=== PATIENT | female | born 1975 | race Caucasian/White ===

== ENCOUNTER 2019-09-16 17:16 | Inpatient (IN) ==
[2019-09-16] MEDS ORDERED: ZOSYN 4.5 GM in NS 100 ML IV ONE (17:50)
[2019-09-16] MEDS ORDERED: NS 1,000 ML IV ONE ×2 (17:51)
[2019-09-16] MEDS ORDERED: BENTYL IM ONE (17:52)
[2019-09-16] MEDS ORDERED: TORADOL IV ONE (17:52)
--- NOTE | 2019-09-16 18:06 | PROVIDER DOCUMENTATION ---
This chart was entered by Savannah Hernandez Scribe, acting as scribe for Finn Bustamante MD. HPI-Abdominal Pain/GI Problem - General Source: patient - History of Present Illness-ABD Nature of Presenting Problems: Patient is a 44 year old female who presents with generalized abdominal pain. States nausea and diarrhea with pain. Reports symptoms have been present for 2 weeks and worsened 4 days ago. Denies vomiting and fever. Abdominal Pain Onset Location: reports: generalized abdomen Pain Radiation: reports: no radiation Quality of Pain: reports: aching Severity in ED: reports: mild Onset/Duration: reports: other (2 weeks) Timing: reports: still present, getting worse (past 4 days) Activities at Onset: reports: light activity Associated Symptoms: reports: diarrhea, nausea. denies: vomiting Bruising or Bleeding Gums?: No Similar Symptoms Previously?: Yes Recently seen or treated by another doctor?: No <Finn Bustamante - Last Filed: 09/16/19 18:04> <Simone Reynolds - Last Filed: 09/16/19 21:41> - General Chief Complaint: SEPSIS ALERT - D Stated Complaint: ABD PAIN,DIARRHEA Time Seen by Provider: 09/16/19 17:41 Allergies/Adverse Reactions: Patient Allergies Allergy/AdvReac Type Severity Reaction Status Date / Time haloperidol [From Haldol] Allergy joint pain Verified 09/16/19 18:24 haloperidol lactate * Allergy joint pain Verified 09/16/19 18:24 [From Haldol] levofloxacin [From Levaquin] Allergy FATIGUE Verified 09/16/19 18:24 Home Medications: Home Medication List Medication Instructions Recorded Confirmed Last Taken Type Clonidine [Catapres] 0.1 mg PO DAILY #30 tab 07/17/19 09/16/19 Unknown Rx Review of Systems - Adult - REVIEW OF SYSTEMS - ADULT Constitutional: reports: no symptoms reported Eyes: reports: no symptoms reported Ears, Nose, Mouth & Throat: reports: no symptoms reported Cardiovascular: reports: no symptoms reported Respiratory: reports: no symptoms reported Gastrointestinal: reports: see HPI, abdominal pain (generalized), diarrhea, [place]. denies: vomiting Genitourinary: reports: no symptoms reported Musculoskeletal: reports: no symptoms reported Integumentary: reports: no symptoms reported Neurological: reports: no symptoms reported Psychiatric: reports: no symptoms reported Endocrine: reports: no symptoms reported Hematologic/Lymphatic: reports: no symptoms reported Allergic/Immunologic: reports: no symptoms reported All Other Systems: Reviewed and Negative <Finn Bustamante - Last Filed: 09/16/19 18:04> Past History - Adult - PAST MEDICAL HISTORY-ADULT Review of Records: reports: Old Records Reviewed, Nursing Assessment Review, Medications Reviewed, Social history reviewed & non-contributory. Major Childhood Illnesses: reports: denies history Cardiovascular: reports: HTN, hyperlipidemia Respiratory: reports: other (chronic sinus headaches/sinusitis) Gastrointestinal: reports: GERD Obstetrical/Gynecological: reports: denies history Genitourinary: reports: denies history Musculoskeletal: reports: chronic pain (Neck) Neurological: reports: denies history Psychiatric: reports: anxiety, depression, psychiatric problems, suicide attempt Endocrine/Immune: reports: denies history Other Conditions: reports: denies history - PRIOR SURGERIES/PROCEDURES Surgical/Procedure History: reports: , gastric bypass - PRIOR HOSPITALIZATIONS Prior Hospitalizations: reports: none - IMMUNIZATION STATUS Childhood Immunizations: See Nurse Assessment Flu Vaccine: See Nurse Assessment - FAMILY HISTORY Family History: reviewed, not pertinent - SOCIAL HISTORY Smoking: denies Substance Use: none presently/history of abuse (history), other (meth) Alcohol Use Frequency: sober (former use) <Finn Bustamante - Last Filed: 09/16/19 18:04> Physical Exam-General - PHYSICAL EXAM-ADULT Initial Vital Signs Reviewed: Yes - CONSTITUTIONAL General Appearance: alert, no apparent distress. negative: lethargic - HEAD, EARS, NOSE, MOUTH & THROAT HENMT: normocephalic/atraumatic, moist mucous membranes. negative: angioedema - RESPIRATORY Respiratory: chest non-tender, lungs clear, normal breath sounds. negative: respiratory distress, wheezing, increased rate - CARDIOVASCULAR Cardiovascular: no edema, tachycardia. negative: systolic murmur - GASTROINTESTINAL (ABDOMEN) Abdominal Exam: normal bowel sounds, soft, tenderness (epigastric and RUQ). negative: rigid - MUSCULOSKELETAL Extremity: non-tender, other (well healed scars to left forearm.). negative: pedal edema - SKIN Integumentary: normal color, normal turgor, warm/dry. negative: diaphoresis, rash - NEUROLOGIC Neurologic: grossly normal. negative: aphasia, facial droop - PSYCHIATRIC Psych/Mental Status: normal mood/affect, oriented x 3. negative: anxious <Finn Bustamante - Last Filed: 09/16/19 18:04> Progress - PLAN OF CARE/RESULTS Progress/Plan/Lab Results: Vital Signs - 8 hr 09/16/19 17:18 Temperature 98.2 F Pulse Rate 164 H Respiratory Rate 20 Blood Pressure 124/81 O2 Sat by Pulse Oximetry 99 Orders Category Date Time Status Cardiac Monitoring DIRECTED Care 09/16/19 17:34 Active IV Insertion ORDERED Care 09/16/19 17:34 Active Notify MD of + Sepsis Screen NOW Care 09/16/19 17:34 Active Notify Physician As Ordered Care 09/16/19 17:34 Active CHEST-1 VIEW [RAD] Stat Exams 09/16/19 17:34 Ordered BLOOD CULTURE [BLDCUL] Stat Lab 09/16/19 17:34 Uncollected CBC WITH DIFF [HEME] Stat Lab 09/16/19 17:34 Uncollected CK PROFILE [SP CHEM] Stat Lab 09/16/19 17:34 Uncollected COMPREHENSIVE METABOLIC PANEL [CHEM] Stat Lab 09/16/19 17:34 Uncollected LACTATE, PLASMA [CHEM] Q3H Lab 09/16/19 17:45 Uncollected LACTATE, PLASMA [CHEM] Q3H Lab 09/16/19 20:45 Uncollected LACTATE, PLASMA [CHEM] Q3H Lab 09/16/19 23:45 Uncollected PROTIME WITH INR [COAG] Stat Lab 09/16/19 17:34 Uncollected PTT [COAG] Stat Lab 09/16/19 17:34 Uncollected TROPONIN T Stat Lab 09/16/19 17:34 Uncollected URINALYSIS W/POSS RFLX CULT [URINALYSIS] Stat Lab 09/16/19 17:34 Uncollected Oxygen Device Stat Oth 09/16/19 17:34 Active EKG [EKG] Stat Ther 09/16/19 17:35 Ordered - REASSESSMENT Reassessment #1 Time Reassessed: 18:04 Status: improving (Patient very tachycardic, either d/t dehydration, sepsis, acute meth intoxication or w/d. WIll give IVF bolus, toradol and bentyl and IV zosyn.) - EKG 1 Time of EKG reading by physician:: 17:43 EKG Read and Signed by:: Finn Bustamante EKG Interpretation (*Must complete 3 of following elements*): Abnormal Rate: 138 Rhythm: sinus tach [place]: left QRS: LVH [place] Interval: normal Comments: questionable OAWMI; NSSTTWC - CHANGE OF SHIFT REPORT (ED Provider) 1 Report Given and Care Transferred to:: [facility] Time of Transfer: 19:00 Items Pending: Labs, CT/MRI Results, Pain Control <Finn Bustamante - Last Filed: 09/16/19 18:04> - PLAN OF CARE/RESULTS Progress/Plan/Lab Results: Vital Signs - 8 hr 09/16/19 17:18 09/16/19 18:11 Temperature 98.2 F Pulse Rate 164 H 117 H Respiratory Rate 20 17 Blood Pressure 124/81 O2 Sat by Pulse Oximetry 99 Laboratory Results - last 24 hr 09/16/19 09/16/19 09/16/19 18:13 18:13 18:20 WBC RBC Hgb Hct MCV MCH MCHC RDW Std Deviation Plt Count MPV Immature Gran % (Auto) Neut % (Auto) Lymph % (Auto) [place] % (Auto) Eos % (Auto) Baso % (Auto) Immature Gran # (Auto) Neut # (Auto) Lymph # (Auto) [place] # (Auto) Eos # (Auto) Baso # (Auto) PT INR PTT ([place] FS) Sodium Potassium Chloride Carbon Dioxide Anion Gap BUN Creatinine Estimated GFR/1.73 m2 BUN/Creatinine Ratio Glucose Calculated Osmolality Calcium Total Bilirubin AST ALT Alkaline Phosphatase Creatine Kinase Troponin T Total Protein Albumin Globulin Albumin/Globulin Ratio Lipase Plasma Lactate 0.6 Urine Source CLEAN CATCH Urine Color YELLOW Urine Turbidity CLEAR Urine pH 5.5 Ur Specific [place] 1.026 Urine Protein TRACE A Ur Glucose (Stick) NEGATIVE Ur Ketones (Stick) NEGATIVE Urine Blood NEGATIVE Urine Nitrite NEGATIVE Urine Bilirubin NEGATIVE Urobilinogen Dipstick NORMAL Urine Leukocytes TRACE A Urine WBC (Auto) <10 Urine RBC (Auto) <10 U Epithel Cells (Auto) <10 Urine Bacteria (Auto) NEGATIVE Urine Opiates Screen NONE DETECTED Ur Oxycodone Screen NONE DETECTED Ur Methadone, Qual NONE DETECTED Ur Barbiturates Screen NONE DETECTED Ur Phencyclidine Scrn NONE DETECTED Ur Amphetamines Screen NONE DETECTED U Benzodiazepines Scrn NONE DETECTED Urine Cocaine Screen NONE DETECTED U Cannabinoids Screen NONE DETECTED Plasma/Serum Ethyl Alc 09/16/19 09/16/19 09/16/19 18:20 18:20 18:20 WBC 6.01 RBC 4.60 Hgb 13.1 Hct 39.6 MCV 86.1 MCH 28.5 MCHC 33.1 RDW Std Deviation 13.6 Plt Count 260 MPV 9.7 Immature Gran % (Auto) 0.0 Neut % (Auto) 59.8 Lymph % (Auto) 32.6 [place] % (Auto) 5.3 Eos % (Auto) 2.0 Baso % (Auto) 0.3 Immature Gran # (Auto) 0.00 Neut # (Auto) 3.59 Lymph # (Auto) 1.96 [place] # (Auto) 0.32 Eos # (Auto) 0.12 Baso # (Auto) 0.02 PT 13.0 INR 0.97 PTT (Actin FS) 27.9 Sodium 143 Potassium 3.5 Chloride 102 Carbon Dioxide 29 Anion Gap 12 BUN 18 Creatinine 0.9 Estimated GFR/1.73 m2 > 60 BUN/Creatinine Ratio 20 Glucose 103 Calculated Osmolality 287 Calcium 9.0 Total Bilirubin 0.25 AST 78 H ALT 98 H Alkaline Phosphatase 269 H Creatine Kinase 69 Troponin T Total Protein 6.7 Albumin 4.0 Globulin 2.7 Albumin/Globulin Ratio 1.5 Lipase 6 L Plasma Lactate Urine Source Urine Color Urine Turbidity Urine pH Ur Specific [place] Urine Protein Ur Glucose (Stick) Ur Ketones (Stick) Urine Blood Urine Nitrite Urine Bilirubin Urobilinogen Dipstick Urine Leukocytes Urine WBC (Auto) Urine RBC (Auto) U Epithel Cells (Auto) Urine Bacteria (Auto) Urine Opiates Screen Ur Oxycodone Screen Ur Methadone, Qual Ur Barbiturates Screen Ur Phencyclidine Scrn Ur Amphetamines Screen U Benzodiazepines Scrn Urine Cocaine Screen U Cannabinoids Screen Plasma/Serum Ethyl Alc 09/16/19 09/16/19 18:20 18:20 WBC RBC Hgb Hct MCV MCH MCHC RDW Std Deviation Plt Count MPV Immature Gran % (Auto) Neut % (Auto) Lymph % (Auto) [place] % (Auto) Eos % (Auto) Baso % (Auto) Immature Gran # (Auto) Neut # (Auto) Lymph # (Auto) [place] # (Auto) Eos # (Auto) Baso # (Auto) PT INR PTT (Actin FS) Sodium Potassium Chloride Carbon Dioxide Anion Gap BUN Creatinine Estimated GFR/1.73 m2 BUN/Creatinine Ratio Glucose Calculated Osmolality Calcium Total Bilirubin AST ALT Alkaline Phosphatase Creatine Kinase Troponin T < 0.010 Total Protein Albumin Globulin Albumin/Globulin Ratio Lipase Plasma Lactate Urine Source Urine Color Urine Turbidity Urine pH Ur Specific [place] Urine Protein Ur Glucose (Stick) Ur Ketones (Stick) Urine Blood Urine Nitrite Urine Bilirubin Urobilinogen Dipstick Urine Leukocytes Urine WBC (Auto) Urine RBC (Auto) U Epithel Cells (Auto) Urine Bacteria (Auto) Urine Opiates Screen Ur Oxycodone Screen Ur Methadone, Qual Ur Barbiturates Screen Ur Phencyclidine Scrn Ur Amphetamines Screen U Benzodiazepines Scrn Urine Cocaine Screen U Cannabinoids Screen Plasma/Serum Ethyl Alc Orders Category Date Time Status Cardiac Monitoring DIRECTED Care 09/16/19 17:34 Active IV Insertion ORDERED Care 09/16/19 17:34 Completed Notify MD of + Sepsis Screen NOW Care 09/16/19 17:34 Active Notify Physician As Ordered Care 09/16/19 17:34 Active CHEST-1 VIEW [RAD] Stat Exams 09/16/19 17:[address] ABD/PELVIS W/IV CONT ONLY [CT] Stat Exams 09/16/19 17:50 Taken ALCOHOL BLOOD Stat Lab 09/16/19 18:20 Completed BLOOD CULTURE [BLDCUL] Stat Lab 09/16/19 17:42 Results C DIFF TOXIN [STOOL] Stat Lab 09/16/19 18:22 Ordered CBC WITH DIFF [HEME] Stat Lab 09/16/19 18:20 Completed CK PROFILE [SP CHEM] Stat Lab 09/16/19 18:20 Completed COMPREHENSIVE METABOLIC PANEL [CHEM] Stat Lab 09/16/19 18:20 Completed LACTATE, PLASMA [CHEM] Lab 09/16/19 18:20 Completed LACTATE, PLASMA [CHEM] Lab 09/16/19 20:45 Uncollected LACTATE, PLASMA [CHEM] Lab 09/16/19 23:45 Uncollected LIPASE [CHEM] Stat Lab 09/16/19 18:20 Completed PROTIME WITH INR [COAG] Stat Lab 09/16/19 18:20 Completed PTT [COAG] Stat Lab 09/16/19 18:20 Completed STOOL CULTURE [RM] Stat Lab 09/16/19 17:50 Uncollected TROPONIN T Stat Lab 09/16/19 18:20 Completed URINALYSIS W/POSS RFLX CULT [URINALYSIS] Stat Lab 09/16/19 18:13 Completed URINE CULTURE [RM] Routine Lab 09/16/19 18:13 Received URINE DRUG SCREEN Stat Lab 09/16/19 18:13 Completed 0.9% Sodium Chloride Inj [Ns] 1,000 ml Med 09/16/19 17:51 Discontinued IV 999 mls/hr 0.9% Sodium Chloride Inj [Ns] 1,000 ml Med 09/16/19 17:51 Discontinued IV 999 mls/hr Dicyclomine [Bentyl] Med 09/16/19 17:52 Discontinued 20 mg IM NOW ONE Ketorolac [Toradol] Med 09/16/19 17:52 Discontinued 30 mg IV NOW ONE Piperacillin/Tazobactam [Zosyn] 4.5 gm Med 09/16/19 17:50 Discontinued 0.9% Sodium Chloride Inj [Ns] 100 ml IV NOW Oxygen Device Stat Oth 09/16/19 17:34 Active EKG [EKG] Stat Ther 09/16/19 17:35 Draft Result Diagrams: 09/16/19 18:20 09/16/19 18:20 - REASSESSMENT Reassessment #2 Time Reassessed: 19:45 Status: improving Reassessment Comment: heart rate has improved Reassessment #3 Time Reassessed: 20:15 Status: improving Reassessment Comment: awaiting CT report, labs are unremarkable - CT/MRI 1 CT Study: Abdomen, Pelvis CT Results: cholelithiasis with cholecystitis - CONSULTS/PCP/HOSPITALIST Notification #1 *Consult/PCP/Hospitalist*: Dr. Roberts, surgeon jewelry salesperson Time Discussed: 21:35 Consult Disposition: Admit #2 Consult: Dr. Brian, hospitalist Time Discussed: 21:40 Consult Disposition: Admit <Simone Reynolds - Last Filed: 09/16/19 21:41> Departure <Finn Bustamante - Last Filed: 09/16/19 18:04> - Departure Date of Disposition Decision: 09/16/19 Time of Disposition Decision: 21:41 Certified Medical Emergency: Emergent - Critical Care Note This patient required my direct & personal management of CC.: No <Simone Reynolds - Last Filed: 09/16/19 21:41> - Departure DIAGNOSIS: Acute cholecystitis Cholelithiasis Qualifiers: Cholelithiasis location: gallbladder Cholecystitis presence: with cholecystitis Cholecystitis acuity: acute Biliary obstruction: without biliary obstruction Q ualified Code(s): K80.00 - Calculus of gallbladder with acute cholecystitis without obstruction Disposition: ADMITTED INPATIENT 09 Condition: Stable Referrals and Follow-Ups: Livan Godoy MD [Primary Care Provider] - Attestation - Physician/ POLI Attestation The physician spent face to face time with patient:: Yes Advanced Practice Provider documentation review:: Supervising physician onsite and consulted in the evaluation and care of this patient. The physician did have a face to face encounter with the patient. <Finn Bustamante - Last Filed: 09/16/19 18:04> This chart was documented by the indicated scribe, (Savannah Hernandez Scribe) and accurately reflects the services I performed and decisions made by Dianna harvey Kent A., MD, as attested by the provider's signature.
--- NOTE | 2019-09-16 18:11 | Diag Imaging Result Doc PS360 ---
EXAM: CHEST-1 VIEW HISTORY: POSSIBLE SEPSIS TECHNIQUE: Single view COMPARISON: 07/17/2019 FINDINGS: The lungs are well expanded. The heart is not enlarged. The vessels are not distended. There are no infiltrates. No effusion identified. IMPRESSION: No pneumonia Electronically signed by Judah Jackson 09/16/2019 6:08 PM
[2019-09-16 18:36] LABS: BASO# 0.02 X1000 (0.0-0.2); BASO% 0.3 % (0.0-0.8); EOS# 0.12 X1000 (0.0-0.7); HEMATOCRIT 39.6 % (37.0-47.0); HEMOGLOBIN 13.1 g/dL (12.0-16.0); LYMPH# 1.96 X1000 (1.2-3.4); LYMPH% 32.6 % (20.5-51.1); MCH 28.5 PG (27-31); MCHC 33.1 g/dL (33-37); MCV 86.1 FL (81-99); MONO# 0.32 X1000 (0.11-0.59); MONO% 5.3 % (1.7-9.3); MPV 9.7 FL (7.4-10.4); NEUT# 3.59 X1000 (1.4-6.5); NEUT% 59.8 % (42.2-75.2); PLT 260 X1000 (130-400); RDW 13.6 % (11.5-14.5); WBC 6.01 X1000 (4.8-10.8)
--- NOTE | 2019-09-16 18:40 | EKG Report ---
Test Performed on : 09/16/2019 5:29:12 PM Test Reason : TACHYCARDIA Blood Pressure : / mmHG Vent. Rate : 138 BPM Atrial Rate : 138 BPM P-R Int : 140 ms QRS Dur : 086 ms QT Int : 280 ms P-R-T Axes : 060 -40 078 degrees QTc Int : 424 ms Sinus tachycardia. Left axis deviation Anterolateral infarct (cited on or before 24-APR-2011) Abnormal ECG When compared with ECG of 17-JUL-2019 14:02, (Unconfirmed) No significant change was found Unconfirmed Result
[2019-09-16 19:02] LABS: INR 0.97; PTT 27.9 Seconds (22.3-41.8)
[2019-09-16 19:07] LABS: ESTIMATED GFR > 60
[2019-09-16 19:08] LABS: AGAP 12; ALB/GLOB RATIO 1.5; ALKALINE PHOSPHATASE 269 U/L (32-104); BUN 18 mg/dL (8-22); CHLORIDE 102 mmol/L (98-107); CK PROFILE 69 U/L (24-173); COSMO 287; CREATININE 0.9 mg/dL (0.5-0.9); GLUCOSE 103 mg/dL (70-104); GOT 78 U/L (10-30); GPT 98 U/L (10-36); LIPASE 6 U/L (13-60); POTASSIUM 3.5 mmol/L (3.5-5.1); SODIUM 143 mmol/L (136-145); TCO2 29 mmol/L (25-35); TOTAL BILIRUBIN 0.25 mg/dL (0.20-1.00); TOTAL PROTEIN 6.7 g/dL (6.3-8.3)
[2019-09-16 19:08] LABS: URINE SOURCE CLEAN CATCH
[2019-09-16 19:11] LABS: BILIRUBIN URINE NEGATIVE (NEGATIVE); BLOOD URINE NEGATIVE (NEGATIVE); COLOR YELLOW; GLUCOSE URINE NEGATIVE (NEGATIVE); KETONE URINE NEGATIVE (NEGATIVE); LEUKOCYTES URINE TRACE (NEGATIVE); NITRITE URINE NEGATIVE (NEGATIVE); PH URINE 5.5; PROTEIN URINE TRACE mg/dL (NEGATIVE); SP GRAVITY URINE 1.026; TURBIDITY URINE CLEAR (CLEAR); UROBILINOGEN URINE NORMAL (NORMAL)
[2019-09-16 19:12] LABS: UR EPITHELIAL CELLS <10 /HPF (<10); URINE BACTERIA NEGATIVE /HPF; URINE RBC <10 /HPF (<10); URINE WBC <10 /HPF (<10)
[2019-09-16 19:28] LABS: UR AMPHETAMINES QUAL NONE DETECTED (NONE DETECT); UR BARBITUATES QUAL NONE DETECTED (NONE DETECT); UR BENZODIAZEPIN QUAL NONE DETECTED (NONE DETECT); UR CANNABINOIDS QUAL NONE DETECTED (NONE DETECT); UR COCAINE QUAL NONE DETECTED (NONE DETECT); UR METHADONE QUAL NONE DETECTED (NONE DETECT); UR OPIATES QUAL NONE DETECTED (NONE DETECT); UR OXYCODONE QUAL NONE DETECTED (NONE DETECT); UR PCP QUAL NONE DETECTED (NONE DETECT)
--- NOTE | 2019-09-16 20:37 | Diag Imaging Result Doc PS360 ---
EXAM: CT ABD/PELVIS W/IV CONT ONLY HISTORY: colitis TECHNIQUE: CT abdomen and pelvis with intravenous contrast COMPARISON: None. FINDINGS: There are multiple stones filling the gallbladder. The common bile duct is dilated to 11 mm and there is intrahepatic biliary dilatation. Mild pericholecystic fluid. Normal spleen, pancreas, adrenal glands, and kidneys. No hydronephrosis. Normal aorta. There are multiple small mesenteric nodes. Normal appendix. No abscess. There is stool throughout the colon. Prominent stool in the rectum. No bowel obstruction. Urinary bladder is moderately distended and normal. No focal uterine abnormality. Neither ovary is enlarged. IMPRESSION: 1.Cholelithiasis with cholecystitis 2.Constipation and possible fecal impaction This exam was performed using automated exposure control, adjustment of mA or kV according to patient size, and/or use of iterative reconstruction technique. Electronically signed by Judah Jackson 09/16/2019 8:34 PM
[2019-09-17] MEDS: SODIUM CHLORIDE 0.9% INJ PRN ×2 (01:44→10:36)
[2019-09-17] MEDS: PHENERGAN IV PRN ×2 (01:44→10:36)
[2019-09-17] MEDS ORDERED: ASPIRIN ONE ×2 (03:05→03:06)
[2019-09-17] MEDS ORDERED: MORPHINE IV ONE (03:38)
[2019-09-17] MEDS ORDERED: CARDENE 20 MG/NS 20 MG/200 ML PIGGYBACK IV SCH (04:00)
[2019-09-17] MEDS ORDERED: TYLENOL PR PRN (05:07)
[2019-09-17] MEDS ORDERED: TYLENOL PO PRN (05:12)
[2019-09-17] MEDS: NS 1,000 ML IV SCH ×2 (06:58→17:02)
[2019-09-17] MEDS: PROTONIX IV SCH (06:58)
[2019-09-17] MEDS: ZOSYN 3.375 GM in NS 50 ML IV SCH ×3 (06:59→17:02)
--- NOTE | 2019-09-17 07:07 | HISTORY AND PHYSICAL ---
PRIMARY CARE PROVIDER: Previously Dr. Livan Godoy though due to insurance reasons the patient has not seen him recently, though she does report that in September of 2019 she will have medical insurance coverage again. She has already confirmed with Dr. Godoy that he will take her back on as a patient at that time. DATE AND TIME: 09/17/2019 at 0145. CHIEF COMPLAINT: Abdominal pain with nausea, vomiting, and diarrhea. HISTORY OF PRESENT ILLNESS: Ms. Ferraro is a 44-year-old female who came to the ER for further evaluation of epigastric and right upper quadrant abdominal pain that she has been having for reported 2 weeks now. The patient states that the pain is intermittent, and usually comes on after she eats. She reports that if she does not eat or drink anything then the pain tends to stay at bay. She says she has had a few episodes like this in the past though brushed it off as she might have gastric ulcers given that it always seemed to bother her after she eats. She denies any previous history of being diagnosed with any type of gastric ulcer disease. She has been reporting constant nausea. She only reports 2 episodes of vomiting in the 2 weeks since her pain started. She denies any hematemesis or coffee-ground appearing emesis. She has reported that she has been having diarrhea that has been watery to slimy in consistency. She denies any hematochezia or melena. She reports that her abdominal pain is a burning and achy type of pain that becomes sharp at times. She reports that pain medicine does help improve it. She denies any body aches, though states that she felt like she may have had a fever. She has been having some chills. She denies any headache, dizziness, chest pain, shortness of breath or cough. She denies any dysuria or urinary frequency. She denies any pain, numbness, tingling or swelling in extremities. The patient has had previous abdominal surgeries of a lap band surgery, and lap band removal due to she did have an obstruction secondary to this. She has also had 2 C-sections in the past. Upon evaluation in the ER, the patient has been afebrile. She has no leukocytosis noted though did have elevation of AST, ALT, and alkaline phosphatase. Given her reported symptoms as well as her elevated liver function tests, I did perform a CT abdomen and pelvis with IV contrast only which did show cholelithiasis with cholecystitis, constipation, and possible fecal impaction. The ER physician did notify the surgeon Dr. Roberts of the patient as well. It was also noted in the ER physician's note that the patient did arrive with a heart rate that was documented to be initially 164. Subsequent heart rates were in the 120s. Though they have since improved with the heart rate now in the 80s to 90s. EKG did show sinus tachycardia. Though after being given medications of Bentyl and Toradol for pain in the ER as well as 2 L of normal saline bolus, the patient's heart rate has since improved. She has not had any further elevations in her heart rate since that time. The patient will be admitted inpatient for further evaluation. REVIEW OF SYSTEMS: 14-point review of systems was conducted with the patient. All were negative except for pertinent positives mentioned above in HPI. PAST MEDICAL HISTORY: 1. Chronic low back pain. 2. Depression. 3. History of opioid dependency. 4. History of methamphetamine abuse. 5. Hypertension. PAST SURGICAL HISTORY: 1. x2. 2. Lap band surgery and lap band removal secondary to complications of obstruction. 3. Cervical fusion reportedly at C3, 4 and 5. SOCIAL HISTORY: The patient denies any tobacco or alcohol use. She did report a previous history of opioid abuse and methamphetamine abuse. She did report that she did use to inject IV methamphetamines as well in the past. She denies any current use at this time. She is disabled. She does have 2 children. She currently does have a boyfriend. She lives in [place]. She also does report that her boyfriend also has a history of hepatitis C. Though the patient reports that she was tested for hepatitis in the past, she has not had any recent testing performed. FAMILY HISTORY: Positive for her mother having a history of heart disease and diabetes. Her father also had a history of heart disease and diabetes. ALLERGIES: Patient has allergies to Levaquin, Haldol and Bactrim. HOME MEDICATIONS: Clonidine 0.1 mg p.o. daily. DIAGNOSTIC DATA/LABORATORY RESULTS: White blood cell count is 6010, hemoglobin 13.1, hematocrit 39.6, and platelet count is 260,000. PT 13, INR 0.97, and PTT is 27.9. Sodium 143, potassium 3.5, chloride 102, serum bicarb of 29, BUN 18, and creatinine 0.9 with a GFR greater than 60, glucose 103, calcium 9, total bilirubin 0.25, AST 78, ALT 98, and alkaline phosphatase 269. CK 69, troponin less than 0.01. Lipase is 6. Plasma lactate is 0.6. Serum alcohol is 0. Urine drug screen was negative. Urinalysis was positive for protein and trace leukocytes. It was negative for glucose, ketones, blood, nitrites, bilirubin, white blood cells, or bacteria. Chest x-ray showed no acute abnormalities per Radiology. CT abdomen and pelvis showed cholelithiasis with cholecystitis, constipation and a possible fecal impaction. Please see full CT report for all details findings. EKG performed in the ER did show sinus tachycardia with a left axis deviation at a rate of 138 with a QTc of 424. PHYSICAL EXAMINATION: VITAL SIGNS: Temperature 98.2 degrees, heart rate 96, respirations 19, blood pressure 136/65, and oxygen saturation is 100% on room air. GENERAL: Ms. Ferraro is a very pleasant 44-year-old female. She was resting in the inpatient bed. She was in no acute distress. She was awake, alert, and able to answer questions appropriately. HEENT: Head is atraumatic, normocephalic. Pupils are equal, round, reactive to light, were 3 mm bilaterally and brisk. Oral mucosa was moist. Oropharynx is clear. NECK: Supple. Trachea midline. CARDIOVASCULAR: Patient has S1-S2 present. No murmurs, gallops, rubs appreciated with a regular rate and rhythm. PULMONARY: Patient has symmetrical chest expansion bilaterally. Lung sounds are clear to auscultation in bilateral full saucedo. ABDOMEN: Soft. Nondistended. The patient reported tenderness upon palpation in the epigastric and right upper quadrant area. She did have a positive Morse sign. Bowel sounds were present in all 4 quadrants, and were normoactive. EXTREMITIES: No cyanosis or edema noted. Pulse, motor, and sensory were intact in all extremities. Radial and pedal pulses were 2+ bilaterally. INTEGUMENTARY: The patient's skin is pink, warm, and dry. NEUROLOGICAL: Patient is alert and oriented to person, place, time, and situation. EXTREMITIES: No cyanosis or edema noted. Pulse, motor, and sensory is intact in all extremities. Radial and pedal pulses are 2+ bilaterally. INTEGUMENTARY: The patient's skin is pink, warm, and dry. NEUROLOGICAL: The patient is alert and oriented to person, place, time, and situation. She is able move all extremities. There were no focal neurological deficits noted. ASSESSMENT AND PLAN: 1. Cholelithiasis with acute cholecystitis. The patient has been placed NPO. Though she has been afebrile and does not have any leukocytosis at this time, blood cultures were previously drawn in the ER. She has been placed with antibiotic coverage of Zosyn 3.375 g q.6 hours IV. We have placed orders for p.r.n. pain medicine and antiemetics if needed. We will provide some gentle intravenous fluid hydration as well with normal saline at 100 mL/h. She has previously received 2 L normal saline bolus in the ER. We have placed a consult with Dr. Roberts with Surgery. We will await their evaluation and further recommendations for management. 2. Transaminitis. This could be related to the patient's cholelithiasis, though she does have history of IV drug abuse in the past, and does have a reported boyfriend who does have hepatitis C. We have placed orders for hepatitis profile as well. We will repeat a CMP in the morning. 3. Hypertension. We have continued the patient's rarely prescribed clonidine 0.1 mg p.o. The patient's blood pressure at this time is within normal limits. The patient's heart rate and blood pressure were elevated in the ER though since being given pain medicine and fluids, these have all returned within normal limits. 4. Deep vein thrombosis prophylaxis. We provided her with sequential compression devices. 5. Constipation. The patient's CT did show constipation with possible fecal impaction. The patient has been reporting that she has been having diarrhea as well. For treatment of this, we will likely go ahead and try to give the patient a mineral oil enema to soften up the stool, and possible fecal impaction, and see if she can have a bowel movement. If not, she may have to be disimpacted. We will go ahead and place her with Colace twice daily though until she is evaluated by Surgery, we will hold off on any other oral medications for bowel regimen in case she is a surgical candidate today. 6. Asymptomatic bacteriuria. The patient did have a few leukocytes noted in her urine, though she is not reporting any urinary symptoms. A urine culture has been ordered. We will await those results and continue to follow. The patient has been placed on the surgical floor with telemetry. She will have vital signs every 6 hours. Do strict intake and output. We will repeat a CBC and CMP in the morning. Further orders and recommendations pending hospital course, diagnostic studies, and physician evaluation. Dictated by YAAKOV Zambrano for Denver Albarran MD cc: Denver Albarran MD MTDD
--- NOTE | 2019-09-17 07:08 | GENERAL SURGERY CONSULTATION ---
DATE: 09/17/2019 REQUESTING PHYSICIAN: Hospitalist. REASON FOR CONSULTATION: Consult concerning cholecystitis. HISTORY OF PRESENT ILLNESS: A 44-year-old female who presented initially with a generalized abdominal pain, nausea, vomiting, diarrhea. She has had symptoms present for 2 weeks and worse in the last 4 days. She was seen in emergency department, had a CT scan that showed cholelithiasis. She was admitted to the Hospitalist Service, started on antibiotics. She is still a little bit better this morning, but still having some right upper quadrant pain. I was asked to weigh an opinion on cholecystitis. PAST MEDICAL HISTORY: Gastroesophageal reflux disease, hyperlipidemia, hypertension, depression, anxiety and PTSD. PAST SURGICAL HISTORY: Includes , lap band, cervical fusion, carpal tunnel. ALLERGIES: Haldol, Levaquin. HOME MEDICATIONS: Clonidine. FAMILY HISTORY: Reviewed. Patient positive for gallbladder symptoms and gallbladder disease. SOCIAL HISTORY: Denies smoking and history of meth abuse. REVIEW OF SYSTEMS: A full 14 systems reviewed and negative except as specified in HPI. PHYSICAL EXAMINATION: Vital Signs: Patient is currently afebrile. Her vital signs are stable. General: No acute distress. female looks stated age. HEENT: Normocephalic, atraumatic. Pupils equal, round, reactive to light. Mucous membranes moist. Oropharynx benign. Neck: Supple. Trachea midline. Cardiovascular: Regular rate and rhythm. Lungs: Grossly clear. Abdomen: Soft. Some tenderness to palpation right upper quadrant. No peritoneal signs. Extremities: Moves all extremities. Neurologic: Grossly intact. Skin: No signs of jaundice. Vascular: All extremities perfused. LABORATORY: Reviewed white blood cell count is normal. Hematocrit is normal. Platelet count normal. AST, ALT and alkaline phosphatase are slightly elevated. Bilirubin is normal. IMAGING: Reviewed. She does have large stones in her gallbladder. ASSESSMENT/PLAN: 44-year-old female with cholecystitis and cholelithiasis. Cholecystitis. At this time, we will resuscitate her overnight and keep her on antibiotics. We will plan on surgical intervention tomorrow. Discussed with the patient the risks, benefits, and alternatives of the procedure. Risks including, but not limited to bleeding, infection, risk of anesthesia, risk of common bile duct injury and bile leak, risk of injuring other organs discussed. Again, we will plan on surgical intervention tomorrow. Make her NPO after midnight. She can have clear liquids tonight. cc: Vinny Diaz MD
[2019-09-17] MEDS ORDERED: FLEET MINERAL OIL ENEMA PR ONE (07:13)
[2019-09-17 07:42] LABS: BASO# 0.02 X1000 (0.0-0.2); BASO% 0.3 % (0.0-0.8); EOS# 0.16 X1000 (0.0-0.7); EOS% 2.6 % (0.0-10.0); HEMOGLOBIN 11.4 g/dL (12.0-16.0); LYMPH# 2.13 X1000 (1.2-3.4); MCH 28.1 PG (27-31); MCHC 32.6 g/dL (33-37); MCV 86.2 FL (81-99); MONO# 0.36 X1000 (0.11-0.59); MONO% 5.9 % (1.7-9.3); MPV 9.9 FL (7.4-10.4); NEUT# 3.41 X1000 (1.4-6.5); NEUT% 56.2 % (42.2-75.2); PLT 246 X1000 (130-400); RBC 4.06 XMIL (4.2-5.4); RDW 13.4 % (11.5-14.5); WBC 6.08 X1000 (4.8-10.8)
[2019-09-17 07:56] LABS: AGAP 9; ALB/GLOB RATIO 1.3; ALBUMIN 3.4 g/dL (3.5-5.0); ALKALINE PHOSPHATASE 225 U/L (32-104); BUN 15 mg/dL (8-22); CALCIUM 8.1 mg/dL (8.8-10.2); CHLORIDE 106 mmol/L (98-107); COSMO 280; CREATININE 0.7 mg/dL (0.5-0.9); ESTIMATED GFR > 60; GLUCOSE 89 mg/dL (70-104); GOT 46 U/L (10-30); GPT 69 U/L (10-36); POTASSIUM 3.8 mmol/L (3.5-5.1); SODIUM 140 mmol/L (136-145); TCO2 25 mmol/L (25-35); TOTAL BILIRUBIN 0.27 mg/dL (0.20-1.00); TOTAL PROTEIN 6.1 g/dL (6.3-8.3)
[2019-09-17] MEDS: MORPHINE IV PRN ×2 (07:59→18:40)
[2019-09-17] MEDS: COLACE PO SCH ×2 (10:10→21:29)
[2019-09-17] MEDS: CATAPRES PO SCH (10:10)
[2019-09-17] MEDS: MIRALAX PO SCH (10:12)
[2019-09-17] MEDS ORDERED: VANCOMYCIN IV PER PHARMACY MISC SCH (15:00)
--- NOTE | 2019-09-17 16:06 | PROGRESS NOTE ---
DATE: 09/17/2019 SUBJECTIVE: The patient is resting comfortably in bed. She complains of mild nausea and abdominal pain. OBJECTIVE: Vital Signs: Temperature 98.1 degrees, blood pressure 109/52, heart rate 64, respirations 16, O2 saturations 100% on room air. General: This is a middle-aged female lying in bed in no acute distress. Heart: S1, S2 normal. Regular rate and rhythm. Lungs: Clear to auscultation bilaterally. Abdomen: Positive bowel sounds, soft. Positive for right upper quadrant tenderness. Extremities: No edema, no cyanosis. Neuro: The patient is alert and oriented x4. LABS: Reviewed. ASSESSMENT AND PLAN: 1. Acute cholecystitis with cholelithiasis. The patient is scheduled to undergo a laparoscopic cholecystectomy tomorrow. Will continue on IV fluids, antiemetics, pain medication and Zosyn. 2. Constipation with fecal impaction. The patient received an enema today. Will also continue on MiraLAX. 3. Deep vein thrombosis prophylaxis. Continue with SCDs. cc: Priscilla Ward MD
[2019-09-17] MEDS: VANCOMYCIN 2 GM in NS 500 ML IV SCH (17:30)
[2019-09-17] MEDS: ZOFRAN IV PRN (19:51)
[2019-09-18] MEDS: ZOSYN 3.375 GM in NS 50 ML IV SCH ×4 (00:18→22:58)
[2019-09-18] MEDS: NS 1,000 ML IV SCH ×2 (00:22→05:54)
[2019-09-18] MEDS: ZOFRAN IV PRN ×3 (01:55→21:00)
[2019-09-18] MEDS: MORPHINE IV PRN ×4 (01:55→20:18)
[2019-09-18] MEDS: VANCOMYCIN 2 GM in NS 500 ML IV SCH ×2 (05:50→17:41)
[2019-09-18] MEDS: PROTONIX IV SCH (05:51)
[2019-09-18] MEDS ORDERED: LR 1,000 ML ONE (07:29)
[2019-09-18] MEDS ORDERED: SENSORCAINE-MPF 0.5%/EPI 1:200,000 ONE (07:29)
[2019-09-18] MEDS: PHENERGAN IV PRN (07:59)
[2019-09-18 08:31] LABS: AGAP 13; ALB/GLOB RATIO 1.4; ALBUMIN 3.1 g/dL (3.5-5.0); ALKALINE PHOSPHATASE 243 U/L (32-104); BUN 8 mg/dL (8-22); CALCIUM 7.6 mg/dL (8.8-10.2); CHLORIDE 105 mmol/L (98-107); COSMO 272; CREATININE 0.6 mg/dL (0.5-0.9); ESTIMATED GFR > 60; GLUCOSE 89 mg/dL (70-104); GOT 77 U/L (10-30); GPT 77 U/L (10-36); POTASSIUM 4.2 mmol/L (3.5-5.1); SODIUM 137 mmol/L (136-145); TCO2 19 mmol/L (25-35); TOTAL BILIRUBIN 0.57 mg/dL (0.20-1.00); TOTAL PROTEIN 5.3 g/dL (6.3-8.3)
--- NOTE | 2019-09-18 09:01 | GENERAL SURGERY PROGRESS NOTE ---
DATE: 09/18/2019 SUBJECTIVE: Patient seems to be doing okay. OBJECTIVE: Vital Signs: Patient is currently afebrile. Her vital signs are stable. General exam: No acute distress. HEENT: Normocephalic, atraumatic. Pupils equal, round, reactive to light. Mucous membranes moist. Oropharynx benign. Neck: Supple. Trachea midline. Cardiovascular: Regular rhythm. Lungs: Grossly clear. Abdomen: Soft. Some discomfort in the right upper quadrant, but no peritoneal signs. Extremities: Moves all extremities. Neurologic: Grossly intact. Skin: No signs of jaundice. Vascular: All extremities perfused. LABORATORY: None this morning as of yet. ASSESSMENT AND PLAN: A 44-year-old female with cholecystitis and cholelithiasis. 1. Cholecystitis. At this time, we will plan on surgical intervention. Discussed with her and documented yesterday the risks, benefits, and alternatives of the procedure. She is wanting to proceed. We will proceed with surgery today. cc: Vinny Diaz MD
[2019-09-18 09:33] LABS: HEMOGLOBIN 11.5 g/dL (12.0-16.0); MCH 28.8 PG (27-31); MCHC 32.9 g/dL (33-37); MCV 87.5 FL (81-99); MPV 9.7 FL (7.4-10.4); RDW 13.2 % (11.5-14.5); WBC 5.36 X1000 (4.8-10.8)
[2019-09-18] MEDS ORDERED: DIPRIVAN 1% ONE (09:43)
[2019-09-18] MEDS ORDERED: XYLOCAINE-MPF 2% ONE (09:43)
[2019-09-18] MEDS ORDERED: QUELICIN (DOSE) ONE (09:46)
[2019-09-18] MEDS ORDERED: TORADOL ONE (09:46)
[2019-09-18] MEDS ORDERED: DECADRON ONE (09:46)
[2019-09-18] MEDS ORDERED: ZOFRAN ONE (09:46)
[2019-09-18] MEDS ORDERED: ROBINUL ONE (09:57)
[2019-09-18] MEDS ORDERED: NEOSTIGMINE ONE (09:57)
[2019-09-18] MEDS ORDERED: VERSED ONE ×2 (10:20→12:08)
[2019-09-18] MEDS ORDERED: FENTANYL ONE (10:53)
[2019-09-18] MEDS ORDERED: SODIUM CHLORIDE 0.9% ONE (11:28)
[2019-09-18] MEDS ORDERED: GLUCAGON ONE (11:28)
--- NOTE | 2019-09-18 12:09 | Diag Imaging Result Doc PS360 ---
OPERATIVE CHOLANGIOGRAM - 09/18/2019 INDICATION: CHOLECYSTITIS TECHNIQUE: The exam was performed by the patient's surgeon. One image was obtained. COMPARISON: None FINDINGS: Contrast was infused into the cystic duct. The common bile duct is diffusely dilated. The pattern ducts are also somewhat dilated. There is very little passage of contrast into the duodenum. No obvious filling defects. IMPRESSION: Dilation of the biliary tree compatible with obstruction or spasm at the sphincter of Dipesh. No visible stones. Electronically signed by Db Pandya 09/18/2019 12:07 PM
[2019-09-18] MEDS: DILAUDID ONE ×2 (12:30→12:41)
[2019-09-18] MEDS: PHENERGAN ONE ×3 (12:36→16:25)
[2019-09-18] MEDS: NORCO-10 ONE ×2 (12:48→14:03)
[2019-09-18 13:19] LABS: HEPATITIS PROFILE ACUTE SEE COMMENTS
[2019-09-18] MEDS: MIRALAX PO SCH (13:54)
[2019-09-18] MEDS: COLACE PO SCH ×2 (13:54→20:14)
[2019-09-18] MEDS: CATAPRES PO SCH (13:54)
--- NOTE | 2019-09-18 14:15 | OPERATIVE NOTE ---
PROCEDURE DATE: 09/18/2019 PREOPERATIVE DIAGNOSES: 1. Cholecystitis. 2. Dilated common bile duct. POSTOPERATIVE DIAGNOSES: 1. Cholecystitis. 2. Dilated common bile duct. PROCEDURE: Laparoscopic cholecystectomy with cholangiogram. SURGEON: Vinny Diaz MD. LIQUID LOADER: None. ANESTHESIA: General endotracheal. OPERATIVE FINDINGS: Dilated common bile duct with no stones. The cystic duct was under pressure. We then gave the patient glucagon. I did not see significant decompression of the system, but we did see some trickle of contrast beyond the sphincter of Oddi. We were able to see the left and right hepatic ducts, and they were dilated also. She also had a significant stone burden. COMPLICATIONS: None at time of dictation. ESTIMATED BLOOD LOSS: 50 mL SPECIMENS REMOVED: Gallbladder. DRAINS: 19-Arabic drain. BRIEF HISTORY: A 44-year-old female presenting with abdominal pain. She had a CT scan that showed dilated common bile duct and dilated cystic duct and a dilated gallbladder. It was felt she would benefit from cholecystectomy. The risks, benefits, and alternatives were discussed. All questions answered. DESCRIPTION OF PROCEDURE: After informed consent was obtained, the patient was brought to the operative theatre, transferred to the operating table, and placed in the supine position. General endotracheal anesthesia was then performed without complication. A formal time-out was then performed confirming patient, date, procedure. All were in agreement. At that time, attention was given to the abdomen. An infraumbilical incision was made through which using Optiview technique we inserted an 11 mm trocar, connected, insufflation pneumoperitoneum was achieved. Under direct visualization, we placed 3 more trocars, all 5 mm, 1 subxiphoid and 2 in the right upper quadrant. Using these, the gallbladder was identified. It was a very distended gallbladder and very redundant. We retracted cephalad. We dissected out the cystic duct and cystic artery. The cystic duct was very dilated. We were able to get around it and achieved the critical view of safety. Given the dilated cystic duct and the dilated common bile duct, we elected do a cholangiogram. We made a ductotomy. Bile came out under pressure. We placed a cholangiogram catheter through the ductotomy, shot a cholangiogram. We saw the left and right hepatic duct and the common bile duct in its entirety. We saw trickle of contrast past the sphincter, but not a significant amount. I did not see any obvious filling defects. We gave the patient glucagon, but did not see any relaxation of the sphincter. We did flush, but could not get any more out. We then elected to finish the cholangiogram. We placed clips and Endoloop around the cystic duct remnant, doubly clipped and ligated the cystic artery, then dissected the gallbladder off the gallbladder fossa. There was a significant amount of stone burden in the gallbladder itself, which made removing the gallbladder difficult. We placed into an endobag and brought it out through the infraumbilical incision, which had to be significantly enlarged to accommodate the stone burden. We then removed all the trocars. We did place a drain from the most lateral trocar site to the gallbladder fossa. We did this because of the pressure in the system and concern about a cystic duct blow-out. We then removed all trocars, disconnected insufflation. Pneumoperitoneum was released. We closed the infraumbilical incision with 0 Vicryl with figure-of- eight stitches x2. There was good fascial closure. We closed all skin incisions with 4-0 Monocryl. The patient tolerated the procedure well. The patient was transferred back to recovery room. We will get GI to see her for possible ERCP in the next couple of days. cc: Vinny Diaz MD
[2019-09-18] MEDS: NORCO-10 PO PRN (16:43)
--- NOTE | 2019-09-18 18:19 | PROGRESS NOTE ---
DATE: 09/18/2019 SUBJECTIVE: The patient underwent a laparoscopic cholecystectomy today. OBJECTIVE: Vital signs: Temperature 98.5 degrees, blood pressure 145/80, heart rate 78, respirations 12, O2 saturation 98% on room air. General: This is a middle-aged female, lying in bed in no acute distress.Heart: S1, S2 normal. Regular rate and rhythm. Lungs: Equal air entry bilaterally. No wheezing. No rales. Abdomen: Positive bowel sounds. Soft, nontender, nondistended. Extremities: No edema. No cyanosis. LABORATORY DATA: Reviewed. ASSESSMENT AND PLAN: 1. Status post laparoscopic cholecystectomy. The cholangiogram revealed dilation of the biliary tree. Gastroenterology has been consulted. Management as per the general surgeon. Continue on antibiotic therapy. 2. Constipation. Continue on MiraLAX. 3. Deep vein thrombosis prophylaxis. We will order sequential compression devices. cc: Priscilla Ward MD
[2019-09-19] MEDS: MORPHINE IV PRN ×5 (01:29→22:47)
[2019-09-19] MEDS: NORCO-10 PO PRN ×2 (04:46→16:08)
[2019-09-19] MEDS: ZOFRAN IV PRN (04:49)
[2019-09-19] MEDS: ZOSYN 3.375 GM in NS 50 ML IV SCH ×5 (04:59→22:07)
[2019-09-19] MEDS: PROTONIX IV SCH (05:00)
--- NOTE | 2019-09-19 07:09 | GENERAL SURGERY PROGRESS NOTE ---
DATE: 09/19/2019 SUBJECTIVE: The patient is doing okay. She is mostly complaining of soreness from the incisions. OBJECTIVE: Vital Signs: The patient is currently afebrile. Her vital signs are stable. General Examination: No acute distress. Cardiovascular: Regular rate and rhythm. Lungs: Grossly clear. Abdomen: Soft. Appropriately tender. LORENZA drain in place with serosanguineous output. ASSESSMENT AND PLAN: A 44-year-old female status post laparoscopic cholecystectomy. Status post laparoscopic cholecystectomy. At this time, she did have a dilated common bile duct. I did not see any filling defects. I have discussed it with Dr. Arce. He will see her tomorrow for a potential endoscopic retrograde cholangiopancreatography. We will make her nothing per oral midnight but she can have a regular diet tonight and through the day. We will monitor her Omar- Ko drain output. We will keep in place given the pressure in the biliary tree. cc: Vinny Diaz MD
[2019-09-19 08:04] LABS: BASO# 0.04 X1000 (0.0-0.2); BASO% 0.4 % (0.0-0.8); EOS# 0.11 X1000 (0.0-0.7); HEMATOCRIT 33.4 % (37.0-47.0); IMM GRAN# 0.03 X1000 (0.0-0.04); IMM GRAN% 0.3 % (0.0-0.5); LYMPH# 1.85 X1000 (1.2-3.4); LYMPH% 16.2 % (20.5-51.1); MCH 28.3 PG (27-31); MCHC 32.9 g/dL (33-37); MCV 85.9 FL (81-99); MONO# 0.69 X1000 (0.11-0.59); MPV 9.9 FL (7.4-10.4); NEUT# 8.69 X1000 (1.4-6.5); NEUT% 76.1 % (42.2-75.2); PLT 233 X1000 (130-400); RBC 3.89 XMIL (4.2-5.4); RDW 13.3 % (11.5-14.5); WBC 11.41 X1000 (4.8-10.8)
[2019-09-19] MEDS: MIRALAX PO SCH (08:06)
[2019-09-19] MEDS: CATAPRES PO SCH (08:06)
[2019-09-19] MEDS: COLACE PO SCH ×2 (08:06→21:04)
[2019-09-19 08:24] LABS: AGAP 12; ALB/GLOB RATIO 1.4; ALBUMIN 3.4 g/dL (3.5-5.0); ALKALINE PHOSPHATASE 279 U/L (32-104); BUN 9 mg/dL (8-22); CALCIUM 8.2 mg/dL (8.8-10.2); CHLORIDE 106 mmol/L (98-107); COSMO 280; CREATININE 0.7 mg/dL (0.5-0.9); ESTIMATED GFR > 60; GLUCOSE 104 mg/dL (70-104); GOT 130 U/L (10-30); GPT 160 U/L (10-36); SODIUM 141 mmol/L (136-145); TCO2 23 mmol/L (25-35); TOTAL BILIRUBIN 0.55 mg/dL (0.20-1.00); TOTAL PROTEIN 5.8 g/dL (6.3-8.3)
[2019-09-19 08:42] LABS: ANISOCYTOSIS 2+; EOS 1 % (1-10); HYPOCHROM 2+; LARGE PLATELETS OCCASIONAL; LYMPHS 13 % (21-51); MICROCYTOSIS 2+; MONO 6 % (1-9); SEGS 76 % (42-75)
--- NOTE | 2019-09-19 21:55 | PROGRESS NOTE ---
DATE: 09/19/2019 SUBJECTIVE: The patient is resting comfortably in bed. She complains of occasional abdominal pain. OBJECTIVE: Vital Signs: Temperature 98.4 degrees, blood pressure 125/53, heart rate 71, respirations 21, O2 saturations 97% on room air. General: This is a middle- aged female lying in bed in no acute distress. Heart: S1, S2 normal. Regular rate and rhythm. Lungs: Equal air entry bilaterally. No wheezing. No rales. Abdomen: Positive bowel sounds. Soft, nontender, nondistended. Extremities: No edema no cyanosis. Neurologic: The patient is alert and oriented x3. LABS: Sodium 141, potassium 4, chloride 106, CO2 of 23, BUN 9, creatinine 0.7, glucose 104. AST 130, ALT 160, alkaline phosphatase 279. White blood cell count 11. ASSESSMENT AND PLAN: 1. Status post laparoscopic cholecystectomy. Stable. 2. CBD dilation. GI has been consulted to perform an ERCP. 3. Constipation. Continue on MiraLAX. 4. Hypertension. Stable. 5. Deep vein thrombosis prophylaxis. Continue with the SCDs. cc: Priscilla Ward MD [facility]
[2019-09-20] MEDS: MORPHINE IV PRN (03:56)
[2019-09-20] MEDS: ZOSYN 3.375 GM in NS 50 ML IV SCH ×3 (03:59→21:19)
[2019-09-20] MEDS: SODIUM CHLORIDE 0.9% INJ SCH ×2 (04:00→10:27)
[2019-09-20] MEDS: PROTONIX IV SCH (04:00)
[2019-09-20] MEDS ORDERED: MORPHINE IV ONE (04:56)
[2019-09-20] MEDS: ZOFRAN IV PRN ×3 (05:18→21:18)
[2019-09-20] MEDS: PHENERGAN IV PRN ×3 (06:26→18:17)
[2019-09-20] MEDS: SODIUM CHLORIDE 0.9% INJ PRN (06:26)
[2019-09-20] MEDS: DILAUDID IV PRN ×5 (06:42→21:18)
--- NOTE | 2019-09-20 07:24 | GENERAL SURGERY PROGRESS NOTE ---
DATE: 09/20/2019 SUBJECTIVE: Patient has a little more discomfort today. LORENZA drain output is increased, but it looks serosanguineous. OBJECTIVE: Vital signs: Patient is currently afebrile. Her vital signs are stable. General exam: No acute distress. Cardiovascular: Regular rate and rhythm. Lungs: Grossly clear. Abdomen: Soft, appropriately tender. LORENZA drain in place, serosanguineous output. ASSESSMENT AND PLAN: A 44-year-old female status post laparoscopic cholecystectomy with dilated common bile duct. 1. Postoperative state: At this time, plan for her to be evaluated by Dr. Arce for potential endoscopic retrograde cholangiopancreatography. I did not see a filling defect on her cholangiogram, but no obvious filling defects or stones. She may need to have the biliary tree decompressed. This may be contributing to her discomfort. We do have a Omar-Ko drain in place. It does not look like there is bilious output, but we will continue to monitor. My partners will cover while I am gone. cc: Vinny Diaz MD
[2019-09-20 07:37] LABS: BASO# 0.03 X1000 (0.0-0.2); BASO% 0.4 % (0.0-0.8); EOS# 0.37 X1000 (0.0-0.7); EOS% 4.7 % (0.0-10.0); HEMATOCRIT 36.7 % (37.0-47.0); IMM GRAN# 0.02 X1000 (0.0-0.04); IMM GRAN% 0.3 % (0.0-0.5); LYMPH% 25.5 % (20.5-51.1); MCH 28.6 PG (27-31); MCHC 32.7 g/dL (33-37); MCV 87.4 FL (81-99); MONO# 0.47 X1000 (0.11-0.59); MPV 10.2 FL (7.4-10.4); NEUT# 4.95 X1000 (1.4-6.5); NEUT% 63.1 % (42.2-75.2); PLT 254 X1000 (130-400); RDW 13.8 % (11.5-14.5); WBC 7.84 X1000 (4.8-10.8)
[2019-09-20 07:46] LABS: AGAP 8; ALB/GLOB RATIO 1.3; ALBUMIN 3.7 g/dL (3.5-5.0); ALKALINE PHOSPHATASE 283 U/L (32-104); BUN 10 mg/dL (8-22); CALCIUM 8.8 mg/dL (8.8-10.2); CHLORIDE 104 mmol/L (98-107); COSMO 282; CREATININE 0.8 mg/dL (0.5-0.9); ESTIMATED GFR > 60; GLUCOSE 96 mg/dL (70-104); GOT 157 U/L (10-30); GPT 150 U/L (10-36); POTASSIUM 4.1 mmol/L (3.5-5.1); SODIUM 142 mmol/L (136-145); TCO2 30 mmol/L (25-35); TOTAL BILIRUBIN 0.59 mg/dL (0.20-1.00); TOTAL PROTEIN 6.6 g/dL (6.3-8.3)
[2019-09-20] MEDS ORDERED: DIPRIVAN 1% 500 MG/50 ML BOTTLE ONE (12:43)
[2019-09-20] MEDS ORDERED: VERSED ONE ×2 (12:45→12:52)
[2019-09-20] MEDS ORDERED: XYLOCAINE-MPF 2% ONE (12:46)
[2019-09-20] MEDS ORDERED: XYLOCAINE 2% ONE (12:59)
[2019-09-20] MEDS ORDERED: INDOCIN ONE (13:12)
[2019-09-20] MEDS ORDERED: GLUCAGON ONE (13:21)
[2019-09-20] MEDS ORDERED: DIPRIVAN 1% ONE (13:30)
[2019-09-20] MEDS ORDERED: FENTANYL ONE (13:30)
--- NOTE | 2019-09-20 13:46 | ENDOSCOPY OPERATIVE NOTE ---
[facility] ENDOSCOPY OPERATIVE NOTE , ERCP PROCEDURE REPORT EXAM DATE: 09/20/2019 PATIENT NAME: Patsy Ferraro MR #: [id number] BIRTHDATE: 1975 ATTENDING: Esa Arce MD STATUS: inpatient PROPERTY STAFF ACCOUNTANT: Aleah Summers and Yesenia Rodriguez INDICATIONS: The patient is a 44 yr old female here for an ERCP due to abdominal pain of suspected b iliary origin, abnormal liver biopsy, and Dilated CBD. PROCEDURE PERFORMED: ERCP with sphincterotomy/papillotomy ERCP with stent placement MEDICATIONS: Per Anesthesia CONSENT: The patient understands the risks and benefits of the procedure and understands that these r isks include, but are not limited to: sedation, allergic reaction, infection, perforation and/or bleeding. Alternative means of evaluation and treatment include, among others: physical exam, x-rays, and/or surgical intervention. The patient elects to proceed with this endoscopic procedure. HISTORY AND PHYSICAL: 09/20/2019 DESCRIPTION OF PROCEDURE: During intra-op preparation period all mechanical and medical equipment was checked for proper function. Hand hygiene and appropriate measures for infection prevention was taken. After the risks, benefits and alternatives of the procedure were thoroughly explained, Informed was verified, confirmed and timeout was successfully executed by the treatment team. With the patient in left semi-prone position, medications were admini stered intravenously.The [id number] ([id number]) was passed from the mouth into the esophagus and further advanc ed from the esophagus into the stomach. From stomach scope was directed to the second portion of the duodenum. M ajor papilla was aligned with the duodenoscope. The scope position was confirmed fluoroscopically. Rest of the finding s/therapeutics are given below. The scope was then completely withdrawn from the patient and the procedure completed. Th e pulse, BP, and O2 saturation were monitored and documented by the physician and the nursing staff throughout the ent letty procedure. The patient was cared for as planned according to standard protocol. The patient was then discharged to [facility] in stable condition and with appropriate post procedure care. ERCP: A manager outpatient film prior to endoscope insertion appeared normal. The Major Papilla was located in t he second portion of the duodenum. The major papilla appeared normal. Pancreatic duct cannulation was attempted usin g the sphincterotome with guidewire. Cannulation of the pancreatic duct was performed with ease. Superfic ial cannulation was achieved. A pancreatogram was performed. The pancreatic duct system appeared normal with no ev idence of stricture, dilation, stones or filling defects. Bile duct cannulation was attempted using the sphin cterotome with guidewire. Cannulation of the bile duct was performed with ease. Deep cannulation was successfully achieved. Dilated CBD, 15-18 mm. With guidewire within the bile duct, a biliary sphincterotomy was performed. A stone extraction was attempted using a stone extraction balloon. The bile duct was swept three times. Slu dge was removed from the bile duct. Under endoscopic and fluoroscopic guidance, a 10Fr X 5cm stent was placed in th e bile duct. ADVERSE EVENT: There were no complications. IMPRESSIONS: Dilated CBD and sludge removed. RECOMMENDATIONS: 1. Repeat liver function test in 1 day(s) 2. Disposition 3. Return to floor when standard parameters are met 4. Start Full liquid diet for 1 Day(s) 5. Resume current medications REPEAT EXAM: Return in 6 weeks for ERCP. Esa Arce MD eSigned: Esa Arce MD 09/21/2019 1:36 PM Revised: 09/21/2019 1:36 PM cc: MD Quan Meraz MD Matthew L Figh, MD PATIENT NAME: Patsy Ferraro MR#: [id number]
--- NOTE | 2019-09-20 13:53 | GASTROENTEROLOGY PROGRESS NOTE ---
DATE: 09/20/2019 SUBJECTIVE: Patient states she is still having pain. Her liver enzymes continue to be elevated. She has noted serosanguineous drainage in her LORENZA drain. OBJECTIVE: Vital Signs: Temperature 98.9 degrees, pulse 55, respirations 16, blood pressure 126/73. General: The patient is awake and alert. Abdomen: Postoperative tenderness noted, incision site with dressing intact. LORENZA drain with serosanguineous drainage. LABORATORY: Hematology: WBCs 7.84, hemoglobin 12.0, hematocrit 36.7, MCV 87.4, platelets 254,000. Chemistry: Sodium 142, potassium 4.1, chloride 104, CO2 30, BUN 10, creatinine 0.8, glucose 96, total bilirubin 0.59, AST 157, ALT 150, alkaline phosphatase 283. ASSESSMENT AND PLAN: 1. Status post laparoscopic cholecystectomy with noted dilated common bile duct. Intraoperative cholangiogram did not show obstruction. She has a CT scan that shows dilated common bile duct and dilated cystic duct. 2. Elevated liver function tests. 3. Abdominal pain. PLAN: The patient continues to have abdominal pain post laparoscopic cholecystectomy. Liver enzymes are elevated. We will proceed with ERCP for further evaluation and possible stent placement if indicated. I have discussed benefits and risks of the procedure with the patient and she wishes to proceed. Further plans to be made according to procedure findings. I have discussed this case with Dr. Arce. ERCP will be planned for today. Dictated by YAAKOV Kiser for Esa Arce MD cc: YAAKOV Anderson MD [facility]
--- NOTE | 2019-09-20 13:56 | Diag Imaging Result Doc PS360 ---
EXAM: ERCP-BILIARY AND PANCREATIC INDICATION: elevated LFT, possible bile duct stone TECHNIQUE: COMPARISON: None. FINDINGS: Four spot fluoroscopic images were provided, which were performed during ERCP and biliary stent placement by Dr. Arce. The common bile duct is dilated and there is abrupt narrowing of the distal common bile duct suggesting a stricture. No well-defined filling defect is identified to indicate a stone. On the final image, the newly placed biliary stent is identified in the expected position. IMPRESSION: As above. Please correlate with live fluoroscopic imaging. Electronically signed by Austin Cruz 09/20/2019 1:54 PM
[2019-09-20] MEDS: MIRALAX PO SCH ×2 (15:20→21:08)
[2019-09-20] MEDS: CATAPRES PO SCH (15:21)
[2019-09-20] MEDS: COLACE PO SCH ×2 (15:21→21:19)
--- NOTE | 2019-09-20 16:40 | PROGRESS NOTE ---
DATE: 09/19/2019 SUBJECTIVE: The patient is resting comfortably. She complains of continued abdominal pain. OBJECTIVE: Vital signs: Temperature 97.5 degrees blood pressure 159/93, heart rate 64, respirations 18, O2 saturation 98% on room air. General: This is a middle-aged female lying in bed in no acute distress. Heart: S1, S2. Normal. Regular rate and rhythm. Lungs: Clear to auscultation bilaterally. No wheezing. No rales. No rhonchi. Abdomen: Positive bowel sounds. Soft, nontender, nondistended. Extremities: No edema. No cyanosis. No calf tenderness. Neurologic: The patient is alert and oriented x4. LABORATORY DATA: Sodium 142, potassium 4.1, chloride 104, CO2 30, BUN 10, creatinine 0.8. AST 157, ALT 150, alkaline phosphatase 283. ASSESSMENT AND PLAN: 1. Dilated common bile duct status post ERCP with biliary sphincterotomy. Continue to monitor the patient closely. Gastroenterology is following. 2. Status post laparoscopic cholecystectomy. Stable. General Surgery is following. 3. Constipation. We will increase the MiraLAX twice a day and Colace. We will also add a Dulcolax suppository. 4. Hypertension. Continue on clonidine. 5. Deep vein thrombosis prophylaxis. Continue on Lovenox. 6. Disposition. We will plan to discharge the patient home once cleared by Gastroenterology. cc: Priscilla Ward MD MTDD
[2019-09-20] MEDS ORDERED: LOVENOX SUBQ SCH (21:00)
[2019-09-20] MEDS ORDERED: DULCOLAX PR SCH (21:00)
[2019-09-21] MEDS: PHENERGAN IV PRN ×2 (01:14→09:39)
[2019-09-21] MEDS: DILAUDID IV PRN ×4 (01:14→13:09)
[2019-09-21] MEDS: ZOSYN 3.375 GM in NS 50 ML IV SCH ×3 (03:23→14:59)
[2019-09-21] MEDS: ZOFRAN IV PRN ×2 (06:43→13:09)
[2019-09-21] MEDS: PROTONIX IV SCH (06:44)
[2019-09-21 07:33] LABS: BASO# 0.03 X1000 (0.0-0.2); BASO% 0.5 % (0.0-0.8); EOS# 0.45 X1000 (0.0-0.7); EOS% 7.3 % (0.0-10.0); HEMATOCRIT 34.7 % (37.0-47.0); HEMOGLOBIN 11.5 g/dL (12.0-16.0); LYMPH# 1.92 X1000 (1.2-3.4); MCH 28.5 PG (27-31); MCHC 33.1 g/dL (33-37); MCV 86.1 FL (81-99); MONO# 0.51 X1000 (0.11-0.59); MONO% 8.2 % (1.7-9.3); MPV 9.9 FL (7.4-10.4); NEUT# 3.28 X1000 (1.4-6.5); PLT 251 X1000 (130-400); RBC 4.03 XMIL (4.2-5.4); RDW 13.5 % (11.5-14.5); WBC 6.19 X1000 (4.8-10.8)
[2019-09-21 08:03] LABS: AGAP 9; ALB/GLOB RATIO 1.1; ALBUMIN 3.3 g/dL (3.5-5.0); ALKALINE PHOSPHATASE 251 U/L (32-104); BUN 8 mg/dL (8-22); CALCIUM 8.8 mg/dL (8.8-10.2); CHLORIDE 99 mmol/L (98-107); COSMO 272; CREATININE 0.8 mg/dL (0.5-0.9); ESTIMATED GFR > 60; GLUCOSE 97 mg/dL (70-104); GOT 54 U/L (10-30); GPT 105 U/L (10-36); POTASSIUM 3.9 mmol/L (3.5-5.1); SODIUM 137 mmol/L (136-145); TCO2 29 mmol/L (25-35); TOTAL BILIRUBIN 0.44 mg/dL (0.20-1.00); TOTAL PROTEIN 6.3 g/dL (6.3-8.3)
[2019-09-21] MEDS: COLACE PO SCH (09:38)
[2019-09-21] MEDS: CATAPRES PO SCH (09:38)
[2019-09-21] MEDS: MIRALAX PO SCH (09:39)
[2019-09-21] MEDS: SODIUM CHLORIDE 0.9% INJ PRN (09:39)
[2019-09-21 12:23] VITALS: BP 93/52
--- NOTE | 2019-09-21 13:31 | GASTROENTEROLOGY PROGRESS NOTE ---
DATE: 09/21/2019 SUBJECTIVE: Patient states she is feeling a little better. Her pain has improved. She had an ERCP on 09/20/2019, findings showed dilated common bile duct and sludge that was removed and a stent was placed in the bile duct. Liver enzymes have improved slightly today. She still reports some abdominal pain. She has tolerated a full liquid diet. OBJECTIVE: Vital Signs: Temperature 98.1 degrees, pulse 57, respirations 20, blood pressure 93/52. General: Patient is awake, alert, no acute distress. LORENZA drain with a small amount of serosanguineous drainage noted. Abdomen: Mildly tender. LABORATORY: Hematology: WBC 6.1,9 hemoglobin 11.5, hematocrit 34.7, MCV 86.1, platelets 251,000. Chemistry: Sodium 137, potassium 3.9, chloride 99, CO2 29, BUN 8, creatinine 0.8, glucose 97, total bilirubin 0.44, AST 54, ALT 105, alkaline phosphatase 251. ASSESSMENT AND PLAN: 1. Status post laparoscopic cholecystectomy with dilated common bile duct. 2. Status post ERCP with stent placement. 3. Elevated liver function tests are improving. PLAN: Continue symptomatic treatment. Patient has tolerated a full liquid diet. She will need repeat ERCP in approximately 6 weeks to remove her bile duct stent. I have given her our contact information to follow up in the office after discharge. Further plans to be made according to her progress. I have discussed this case with Dr. Arce. Dictated by YAAKOV Kiser for Esa Arce MD cc: YAAKOV Anderson MD
--- NOTE | 2019-09-21 14:52 | GENERAL SURGERY PROGRESS NOTE ---
DATE: 09/21/2019 SUBJECTIVE: The patient is feeling better overall. Her right-sided abdominal pain is much improved. She has some pain in her left side, but not severe. No nausea or vomiting. She is tolerating a liquid diet. OBJECTIVE: She is afebrile. Vital signs stable.General: She is awake, alert, and oriented x3. No acute distress. Gastrointestinal: Soft, nondistended. Minimally tender. Incision is clean, dry, and intact. LABORATORY: Liver function tests are improving. Her LORENZA drain has serosanguineous drainage. ASSESSMENT/PLAN: A 44-year-old female status post laparoscopic cholecystectomy and ERCP with stent placement. She is safe for discharge from my standpoint, and can follow up with Dr. Diaz next week to remove her drain. cc: Giovani Phillips MD
[2019-09-21] MEDS ORDERED: PHENERGAN PO PRN (15:12)
[2019-09-21] MEDS: NORCO-10 PO PRN (16:19)
--- NOTE | 2019-09-21 17:56 | DISCHARGE SUMMARY ---
ADMISSION DATE: 09/16/2019 DISCHARGE DATE: 09/21/2019 DISCHARGE DISPOSITION: Home. DISCHARGE CONDITION: Hemodynamically stable. She has been tolerating liquid diet. DISCHARGE FOLLOWUP: She was advised to follow up with general surgeon within 1 week; GI for stent removal within 4 weeks; and Dr. Diaz, General Surgery, within 1 week for abdominal drain removal. DISCHARGE DIAGNOSES: 1. Cholecystolithiasis with acute cholecystitis. 2. Dilated common bile duct due to biliary sludge. 3. Constipation. 4. Essential hypertension. 5. Transaminitis. 6. Asymptomatic bacteriuria. DISCHARGE MEDICATIONS: 1. Clonidine 0.1 mg daily. 2. MiraLAX 17 g daily. 3. [place] 10 one tablet every 6 hours as needed for abdominal pain, 20 tablets have been prescribed. 4. Phenergan 12.5 mg every 6 hours as needed for nausea and vomiting, 10 tablets have been prescribed. VITAL SIGNS AT THE TIME OF DISCHARGE: Temperature of 98.1 degrees, pulse 57, respiratory rate 20, blood pressure 93/52, saturating 98% on room air. PHYSICAL EXAMINATION: General: Miss Ferraro was not in any acute distress. Oral cavity is moist. Lungs: Air entry bilaterally equal. No wheeze, rhonchi, crackles. Cardiovascular: S1, S2 normal. No murmur, rub, or gallop. Abdomen: Soft. She has right upper quadrant abdominal drain draining brownish output. Mild tenderness around it. She also has laparoscopy scars which are dressed. She had active bowel sounds. Extremities: No lower extremity edema. Neurologic: She was alert and oriented x3. LABORATORIES AT THE TIME OF DISCHARGE: WBC 6.1, hemoglobin is stable, platelet 251,000. BUN 8, creatinine 0.8, potassium 3.9, AST 54, ALT 105. Microbiology: One of the 2 blood cultures was growing coagulase-negative Staphylococcus which was thought to be contaminant. IMAGING DURING HOSPITAL ADMISSION: Chest x-ray on September 16 did not have any acute cardiopulmonary process. Abdomen and pelvis CT on September 16 had cholelithiasis with cholecystitis, constipation, and possible fecal impaction. Intraoperative cholangiogram had dilatation of the biliary tree compatible with obstruction or spasm of the sphincter of Oddi without any visible stone. Electrocardiogram on presentation had sinus tachycardia, left axis deviation, anterolateral infarct. CONSULTATION DURING HOSPITAL ADMISSION: 1. Gastroenterology, Dr. Arce. 2. General Surgery, Dr. Diaz. PROCEDURES DURING HOSPITAL ADMISSION: 1. On September 18 the patient underwent laparoscopic cholecystectomy with cholangiogram and drain put in right upper quadrant. 2. The patient underwent endoscopy on 09/20/2019 with ERCP, sphincterotomy, papillotomy, and stent placement with Dr. Arce. HOSPITAL COURSE SUMMARY: Miss Ferraro is a 44-year-old lady who initially presented to ER with chief complaints of abdominal pain, nausea, vomiting, and diarrhea. Apparently, the patient has been having discomfort in the abdomen for almost 2 weeks, but she did not seek any medical attention. She also have watery slimy diarrhea since then which was not improving. However, symptoms did not get better and her vomiting and abdominal pain started getting worse, so she decided to come to the hospital. In the emergency room on arrival, she was found to have tachycardia with pulse as high as 160 though her WBC count was normal. However, she did have transaminitis with elevated AST, ALT, and alkaline phosphatase, so CT scan of the abdomen and pelvis was performed which had detected cholelithiasis with cholecystitis. So the patient was started on intravenous fluids, intravenous antibiotics, and Hospitalist as well as General Surgical Team were consulted. The patient underwent laparoscopic cholecystectomy and intra-abdominal drain placement on 09/18/2019. Intraoperative cholangiogram did have biliary tree dilatation, so eventually GI was also consulted and the patient underwent ERCP with sphincterotomy, papillotomy, and stent placement with sludge removal following which her liver function tests were declining. At the time of discharge, the patient has been hemodynamically stable and has been tolerating a liquid diet without recurrence of nausea and vomiting. She also had a documented bowel movement post surgery, so it was decided to discharge her home on oral antibiotics and to have outpatient General Surgical and GI followup. She was advised to see Dr. Diaz within 1 week to have discussion about abdominal drain removal and with Dr. Arce in about 4 weeks to have discussion about bile duct stent removal. TIME SPENT: 25 minutes of time was spent discharging the patient. Plan of care was extensively discussed with her and her questions were satisfactorily answered. cc: MD YANELIS Ewing
== END 2019-09-21 18:07 | disposition home or self-care (01) ==
LOC: ED 17:16 → 3N 23:40 → SUATTDRO 23:40 → 3N 09-20 20:55
PROVIDERS: ATTEND Internal Medicine